=== PATIENT | female | born 1950 | race Caucasian/White ===

== ENCOUNTER 2017-12-03 20:43 | Outpatient (CLI) | payer MEDICARE | END 2017-12-03 20:44 | disposition EMS.NT | LOC: EMS 20:43 | PROVIDERS: ATTEND Surgery | DX: S01.81XA Laceration without foreign body of other part of head, initial encounter (principal); W01.0XXA Fall on same level from slipping, tripping and stumbling without subsequent striking against object, initial encounter; Y92.009 Unspecified place in unspecified non-institutional (private) residence as the place of occurrence of the external cause ==

== ENCOUNTER 2017-12-03 21:40 | Emergency (ER) | payer MEDICARE ==
[2017-12-03] MEDS ORDERED: fentaNYL 100 MCG/2 ML VIAL IM STA (22:36)
--- NOTE | 2017-12-03 23:30 | CT Report ---
Reason: fall, neck pain, syncope, chin lac, jaw pain Procedure Date: 12/03/2017 Accession Number: [id number] / [id number] Procedure: CT - Cervical Spine W/O CPT Code: FULL RESULT: EXAM: CT CERVICAL SPINE WITHOUT CONTRAST DATE: 12/03/2017 11:18 PM. HISTORY: Fall, neck pain. COMPARISONS: None. TECHNIQUE: Thin-section axial images were acquired of the cervical spine without contrast. Post-processing: Coronal and sagittal reformats. Other: None. In accordance with CT protocol optimization, one or more of the following dose reduction techniques were utilized for this exam: automated exposure control, adjustment of mA and/or KV based on patient size, or use of iterative reconstructive technique. FINDINGS: Alignment: Grade 1 anterolisthesis at C4-C5, retrolisthesis C5-C6. Bones: No fracture or bone lesion. Prominent diffuse osteopenia. Interspace Levels/Facets: C1-C2: Unremarkable. C2-C3: Unremarkable. C3-C4: Unremarkable. C4-C5: Moderate left-sided facet osteoarthritis. Grade 1 anterolisthesis. No significant appearing central or foraminal stenosis. C5-C6: Severe disk space narrowing. Right-sided uncinate process hypertrophy mildly narrows the foramen. C6-C7: Unremarkable. C7-T1: Unremarkable. Musculature: Normal. No fatty atrophy. Other: The paravertebral and prevertebral soft tissues are unremarkable. The lung apices are clear. IMPRESSION: Prominent diffuse osteopenia. Degenerative changes at C4-C5 and C5-C6. No fracture is identified. [facility]
--- NOTE | 2017-12-03 23:53 | CT Report ---
Reason: fall, neck pain, syncope, chin lac, jaw pain Procedure Date: 12/03/2017 Accession Number: [id number] / [id number] Procedure: CT - Head W/O CPT Code: FULL RESULT: EXAM: CT HEAD EXAM DATE: 12/03/2017 11:23 PM. CLINICAL HISTORY: Fall, neck pain, syncope, chin laceration, jaw pain. COMPARISON: None. TECHNIQUE: Multiaxial CT images were obtained from the foramen magnum to the vertex. Reformats: Sagittal and coronal. IV contrast: None. In accordance with CT protocol optimization, one or more of the following dose reduction techniques were utilized for this exam: automated exposure control, adjustment of mA and/or KV based on patient size, or use of iterative reconstructive technique. FINDINGS: Parenchyma: No intraparenchymal hemorrhage. No evidence of mass, midline shift, or CT findings of infarction. Barlow-white differentiation is distinct. Extraaxial Spaces: Normal for age. No subdural or epidural collections identified. Ventricles: Normal in size and position. Sinuses and Orbits: Imaged paranasal sinuses, orbits, and mastoids show no significant abnormality. Bones: No evidence of fracture or calvarial defect. Other: None. IMPRESSION: Normal head CT. [facility]
--- NOTE | 2017-12-03 23:59 | CT Report ---
Reason: fall, neck pain, syncope, chin lac, jaw pain Procedure Date: 12/03/2017 Accession Number: [id number] / [id number] Procedure: CT - Facial Bones W/O CPT Code: FULL RESULT: EXAM: CT MAXILLOFACIAL WITHOUT CONTRAST EXAM DATE: 12/03/2017 11:21 PM. CLINICAL HISTORY: Fall, neck pain, syncope, chin lac, jaw pain. COMPARISONS: None. TECHNIQUE: Thin-section axial images were acquired of the face without contrast. Post-processing: Coronal and sagittal reformats. Other: None. In accordance with CT protocol optimization, one or more of the following dose reduction techniques were utilized for this exam: automated exposure control, adjustment of mA and/or KV based on patient size, or use of iterative reconstructive technique. FINDINGS: Soft Tissue: There is a large hematoma of the left chin. Orbits: Symmetric and unremarkable. Bones: No fracture or bone lesion. Temporomandibular Joints: The temporomandibular joints are symmetric and normally located. Sinuses: Mild paranasal sinus mucosal thickening. No fluid levels. Other: None. IMPRESSION: No evidence of maxillofacial fracture. [facility]
[2017-12-04] MEDS ORDERED: LIDOCAINE 2%-EPI 1:100000 20 ML MDV SUBQ STA (00:02)
[2017-12-04] MEDS ORDERED: BACITRACIN OINT TOP STA ×2 (00:40→00:41)
[2017-12-04] MEDS ORDERED: IBUPROFEN 600 MG TABLET PO STA (00:40)
[2017-12-04] MEDS ORDERED: BACITRACIN OINT TOP ONE (00:41)
[2017-12-04 00:49] VITALS: BP 142/106
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
== END 2017-12-04 01:01 | disposition home or self-care (01) ==
LOC: ED 21:40
DX: S01.81XA Laceration without foreign body of other part of head, initial encounter (principal); W01.0XXA Fall on same level from slipping, tripping and stumbling without subsequent striking against object, initial encounter; Y93.01 Activity, walking, marching and hiking; Y92.008 Other place in unspecified non-institutional (private) residence as the place of occurrence of the external cause
CPT/HCPCS: 12011; 70450; 70486; 72125; 96372; 99283; 99284; A9270